=== PATIENT | female | born 1985 | race Caucasian/White ===

== ENCOUNTER 2020-06-01 03:55 | Outpatient (CLI) | payer MEDICAID, SELFPAY ==
[2015-06-22 10:44] VITALS: BMI 37.6
[2020-06-01 04:22] VITALS: TEMP 36.7
[2020-06-01 04:24] VITALS: BP 122/58; PULSE 82; O2SAT 95
[2020-06-01 04:40] VITALS: BMI 29.9
[2020-06-01 05:43] LABS: Bacteria 0 SEEN /hpf (None Seen); Color, Urine Yellow (Yellow); Glucose, Dipstick Normal (Normal); Ketone-Dipstick Negative (Negative); Leukocyte Esterase-Dipstick Negative /ul (Negative); Mucous, Urine 0 SEEN /hpf (<or=2+); Nitrite-Dipstick Negative (Negative); Occult Blood-Urine Negative /ul (Negative); Protein-Dipstick Negative (Negative); Red Blood Cells-Urine 0 SEEN /hpf (0-5); Specific Gravity, Urine 1.015 (1.002-1.030); Urine Bilirubin Dipstick Negative (Negative); Urine Clarity Clear (Clear); Urine Urobilinogen Normal (Normal); White Blood Cells 0 SEEN /hpf (0-5)
[2020-06-01 06:00] LABS: Squamous Epithelial Cells - UA 0-5 SEEN /hpf (5-10)
--- NOTE | 2020-06-01 06:02 | OB.TRI.HP_ITS ---
- Problem List (1) contractions Status: Acute (2) Obesity affecting , antepartum Status: Acute History of Present Illness Date of Service: 05/31/20 Was patient seen by the physician?: Yes Reason For Visit: RULE OUT LABOR Date of Service: 06/01/20 Final GERONIMO: 06/27/20 Final GERONIMO Source: US <20 weeks Gestational age: 36 Weeks and 2 Days History of Present Illness: Patient is a at 35.2 weeks gestation that presents for contractions starting at home around 0830. Contractions became more frequent and were coming every 2-3 minutes. Positive movement. No loss of fluid or vaginal bleeding. complicated by obesity and history of depression. Allergies No Known Allergies Allergy (Verified 06/01/20 04:42) Laboratory Studies: Laboratory Tests 06/01/20 Range/Units 05:38 Urine Color Yellow (Yellow) Urine Clarity Clear (Clear) Urine pH 8.0 (5.0 - 8.0) Ur Specific [place] 1.015 (1.002-1.030) Urine Protein Negative (Negative) mg/dl Urine Glucose (UA) Normal (Normal) mg/dl Urine Ketones Negative (Negative) mg/dl Urine Occult Blood Negative (Negative) /ul Urine Nitrite Negative (Negative) Urine Bilirubin Negative (Negative) mg/dL Urine Urobilinogen Normal (Normal) mg/dl Ur Leukocyte Esterase Negative (Negative) /ul Urine RBC 0 SEEN (0-5) /hpf Urine WBC 0 SEEN (0-5) /hpf Ur Squamous Epith Cells 0-5 SEEN (5-10) /hpf Urine Bacteria 0 SEEN (None Seen) /hpf Urine Mucus 0 SEEN (<or=2+) /hpf Review of Systems Constitutional: Denies: Malaise, Weakness Eyes: Denies: Blurred vision HEENT: Denies: Head Aches Cardiovascular: Denies: Chest Pain Respiratory: Denies: Cough, Shortness of Breath Gastrointestinal: Denies: Abdominal Pain Genitourinary: Denies: Dysuria, Frequency Neurological: Denies: Balance problems Physical Exam Vitals: Vital Signs Temp Pulse BP Pulse Ox 98.0 F 82 122/58 H 95 06/01/20 04:22 06/01/20 04:24 06/01/20 04:24 06/01/20 04:24 General: Alert, Oriented x3 Cardiovascular: Regular rate Lungs: Clear to auscultation, Normal air movement Abdomen: Non Tender, Gravid, Obese Neurological: Cranial nerves II-XII grossly intact Estimated gestational size: Large for gestational age Presentation: Cephalic Cervix Dilation (cm): 3.5 - RN exam Station: -2 Effacement (%): 50 NST - FHR Rate Baby A Baseline: 145 Variability:: Moderate Accelerations:: 15 x 15 Decelerations:: None FHR Category:: Category I Uterine Activity:: TOCO reading contractions every 2-3 minutes. Difficult to trace due to maternal size. Palpate mild and relaxed in between. Impression/Plan at 35.3 weeks gestation with contractions. CE by RN- 3.5/50/-3 Collected UA and sent- see results Urine sent for Culture Start Macrobid 100mg BID x7 days Continuous monitoring Celestone 12mg x1 now IV fluids - LR @50cc/hr Recheck cervix in [address] Salter agrees with plan of care
--- NOTE | 2020-06-01 06:39 | OB.TRI.HP_ITS ---
- Problem List (1) AMA (advanced maternal age) multigravida 35+ Status: Acute (2) History of delivery Status: Acute (3) Late care Status: Acute History of Present Illness Date of Service: 06/01/20 Was patient seen by the physician?: Yes Reason For Visit: RULE OUT LABOR Date of Service: 06/01/20 Final GERONIMO: 06/27/20 Final GERONIMO Source: US <20 weeks Gestational age: 36 Weeks and 2 Days History of Present Illness: at 36.2 weeks gestation presents to triage with feeling uncomfortable and miserable. Denies loss of fluid, vaginal bleeding and has positive movement. Reports lower pelvic pressure. No dysuria but has increased frequency. Denies any cramping or contractions. Stated just wants to have c/s so she can be done being . Allergies No Known Allergies Allergy (Verified 06/01/20 04:42) Laboratory Studies: Laboratory Tests 06/01/20 Range/Units 05:38 Urine Color Yellow (Yellow) Urine Clarity Clear (Clear) Urine pH 8.0 (5.0 - 8.0) Ur Specific [place] 1.015 (1.002-1.030) Urine Protein Negative (Negative) mg/dl Urine Glucose (UA) Normal (Normal) mg/dl Urine Ketones Negative (Negative) mg/dl Urine Occult Blood Negative (Negative) /ul Urine Nitrite Negative (Negative) Urine Bilirubin Negative (Negative) mg/dL Urine Urobilinogen Normal (Normal) mg/dl Ur Leukocyte Esterase Negative (Negative) /ul Urine RBC 0 SEEN (0-5) /hpf Urine WBC 0 SEEN (0-5) /hpf Ur Squamous Epith Cells 0-5 SEEN (5-10) /hpf Urine Bacteria 0 SEEN (None Seen) /hpf Urine Mucus 0 SEEN (<or=2+) /hpf Review of Systems Constitutional: Denies: Anorexia, Chills Eyes: Denies: Blurred vision Cardiovascular: Denies: Chest Pain, Light Headedness Respiratory: Denies: Cough Gastrointestinal: Denies: Abdominal Pain Genitourinary: Reports: Frequency. Denies: Dysuria, Hematuria, Hesitancy Physical Exam Vitals: Vital Signs Temp Pulse BP Pulse Ox 98.0 F 82 122/58 H 95 06/01/20 04:22 06/01/20 04:24 06/01/20 04:24 06/01/20 04:24 General: Alert, Oriented x3 Cardiovascular: Regular rate Lungs: Normal air movement Abdomen: Soft, Non Tender, Gravid Neurological: Cranial nerves II-XII grossly intact Cervix Dilation (cm): 1 - RN exam Station: -3 Effacement (%): 50 NST - FHR Rate Baby A Baseline: 115 Variability:: Moderate Accelerations:: 15 x 15 Decelerations:: None NST Reactive:: Yes FHR Category:: Category I - FHR Rate Baby B FHR Category:: Category I Uterine Activity:: Irritability only. Difficult to trace due to maternal position. Impression/Plan at 36.2 weeks gestation with pelvic pressure and overall feeling uncomfortable. History of 2 C/S Category 1 tracing Patient refusing to sit back to allow monitoring at times UA - negative CE- unchanged at /-3 Discharged home and patient to follow up in office for JANNY. Patient very angry when discharged home stating no one cares that she is uncomfortable and she just wants to have her c/s
== END 2020-06-01 06:07 | disposition home or self-care (01) ==
PROVIDERS: Referring Provider Advanced Practice Midwife; Visit Provider Advanced Practice Midwife
DX: O26.893 Other specified pregnancy related conditions, third trimester (principal); R10.2 Pelvic and perineal pain; O09.523 Supervision of elderly multigravida, third trimester; O09.30 Supervision of pregnancy with insufficient antenatal care, unspecified trimester; Z3A.36 36 weeks gestation of pregnancy; Z98.891 History of uterine scar from previous surgery
CPT/HCPCS: 59025; 59050; 81001; 99218; G0378

== ENCOUNTER 2020-06-14 23:18 | Outpatient (CLI) | payer MEDICAID, SELFPAY ==
[2020-06-14 23:31] VITALS: BP 108/70; PULSE 106; TEMP 36.4; O2SAT 98
[2020-06-14 23:36] VITALS: BMI 31.0
[2020-06-15 00:08] VITALS: BP 113/63; PULSE 91; TEMP 36.6; O2SAT 96
--- NOTE | 2020-06-27 11:02 | OB.TRI.NOTE ---
History of Present Illness Date of Service: 06/16/20 Was patient seen by the physician?: No Reason For Visit: RULE OUT LABOR Date of Service: 06/15/20 Final GERONIMO Source: [place] <20 weeks History of Present Illness: Presented with complaint of contractions. Allergies No Known Allergies Allergy (Verified 06/21/20 10:49) Physical Exam Vitals: Vital Signs Temp Pulse BP Pulse Ox 97.9 F 91 113/63 96 06/15/20 00:08 06/15/20 00:08 06/15/20 00:08 06/15/20 00:08 NST - FHR Rate Baby A Baseline: 115 Variability:: Minimal Accelerations:: 15 x 15 Decelerations:: None NST Reactive:: Yes Impression/Plan A:False Labor P: Discharge home
== END 2020-06-15 00:20 | disposition home or self-care (01) ==
LOC: WPOUT 23:24 → WP 23:25
PROVIDERS: Referring Provider Advanced Practice Midwife; Visit Provider Advanced Practice Midwife
DX: O47.9 False labor, unspecified (principal); Z3A.00 Weeks of gestation of pregnancy not specified
CPT/HCPCS: 59025; 59050; 99218; G0378

== ENCOUNTER 2020-06-19 22:35 | Outpatient (CLI) | payer MEDICAID, SELFPAY ==
[2020-06-19 22:50] VITALS: BP 127/69; PULSE 83; TEMP 36.8; O2SAT 97
[2020-06-19 22:55] VITALS: BMI 32.8
[2020-06-19 23:27] LABS: ROM Internal Control Test YES-OK TO RESULT pt. (Internal QC); ROM Patient Test Negative (Negative)
[2020-06-19 23:52] VITALS: TEMP 36.9; O2SAT 98
[2020-06-19 23:53] VITALS: BP 113/56; PULSE 70
--- NOTE | 2020-06-20 08:41 | OB.TRI.NOTE ---
- Problem List (1) 38 weeks gestation of Status: Acute (2) Cramping affecting , antepartum Status: Acute History of Present Illness Date of Service: 06/19/20 Was patient seen by the physician?: No Reason For Visit: R/O LABOR Date of Service: 06/19/20 Final GERONIMO: 06/27/20 Final GERONIMO Source: US <20 weeks Gestational age: 39 Weeks and 0 Days History of Present Illness: Pt with irregular ctx's and cramping Allergies No Known Allergies Allergy (Verified 06/19/20 22:56) Laboratory Studies: Laboratory Tests 06/19/20 Range/Units 22:55 Vag Amniotic Fld Detect Negative (Negative) Physical Exam Vitals: Vital Signs Temp Pulse BP Pulse Ox 98.5 F 70 113/56 L 98 06/19/20 23:52 06/19/20 23:53 06/19/20 23:53 06/19/20 23:52 NST - FHR Rate Baby A Baseline: 120 Variability:: Moderate Accelerations:: 15 x 15 Decelerations:: None NST Reactive:: Yes Uterine Activity:: Irregular ctx's and irritability Impression/Plan Patient not in labor NST reactive D/c home with return precautions
== END 2020-06-20 00:20 | disposition home or self-care (01) ==
LOC: WPOUT 22:39 → OBT 22:40
PROVIDERS: Referring Provider Obstetrics & Gynecology; Visit Provider Obstetrics & Gynecology
DX: O26.893 Other specified pregnancy related conditions, third trimester (principal); R25.2 Cramp and spasm; Z3A.39 39 weeks gestation of pregnancy
CPT/HCPCS: 59025; 59050; 84112; 99218; G0378

== ENCOUNTER 2020-06-21 10:20 | Inpatient (IN) | payer MEDICAID, SELFPAY ==
--- NOTE | 2020-06-16 11:43 | PCM.HP.BLA ---
History and Physical Date of Admission: 06/21/20 Pavithra Rowe Physician Specialty: CATTLE DRIVER H&P Signed Encounter Date: 06/16/2020 Expand All Collapse All Hide copied text Josy for details Veena Moise is a 35 year old female who presents for pre op for scheduled c/s at 39 weeks. Pt has h/o 2 previous cs and desires repeat with bilateral salpingectomy. Pt denies vb, lof, contractions. Good FM. Pt denies CP, SOB, dizziness. ? ? PAST MEDICAL HISTORY PAST MEDICAL HISTORY Diagnosis Date ? Chlamydia 2009 PAST SURGICAL HISTORY PAST SURGICAL HISTORY Procedure Laterality Date ? DELIVERY ONLY ? 08/19/2011 ? x 2 ? SECTION HX ? 06/22/2015 FAMILY HISTORY FAMILY HISTORY Problem Relation Age of Onset ? Cancer Maternal Grandfather ? ? Lung Cancer SOCIAL HISTORY Social History ? Tobacco Use ? Smoking status: Former Smoker ? Smokeless tobacco: Never Used Substance Use Topics ? Alcohol use: Yes ? ? Comment: Rare, none while ? Drug use: Never CURRENT MEDICATIONS Current Outpatient Medications Medication Sig ? metroNIDAZOLE (FLAGYL) 500 mg tablet ? ? VIT #91/FE FUM/FA/DHA ( + DHA ORAL) Take 1 tablet by mouth once daily. ? No current facility-administered medications for this visit. Allergies As of Date: 06/16/2020 (No Known Allergies) Fully Assessed 06/16/2020 ? REVIEW OF SYSTEMS Abdomen: No abdominal pain, nausea, vomiting, diarrhea, or constipation. Bladder: no dysuria .. Expanded ROS: GENERAL: Negative for fever Allergies and current medication updated:Yes ? EXAM: BP 122/78 Wt 181 lb (82.1kg) LMP 09/21/2019 GENERAL: pleasant, female in no apparent distress HEENT: Normocephalic and atraumatic NECK: full range of motion DERMATOLOGY: Normal, without lesions, non-icteric and non-hirsute ABDOMEN: gravid, non tender ? NEURO: alert and oriented x3,exam grossly non-focal EXTREMITIES: normal ? ASSESSMENT AND PLAN: Encounter Diagnosis ? ? ICD-10-CM ? 1. Antepartum multigravida of advanced maternal age O09.529 URINE OB DIP B/O 2. History of 2 sections Z98.891 URINE OB DIP B/O 3. 38 weeks gestation of Z3A.38 URINE OB DIP B/O 4. Repeat cs scheduled 39.1 weeks with bilateral salpingectomy 5. covid testing reviewed 6. Pt has been counseled on risks/benefits and alternatives of surgery including but not limited to anesthesia, bleeding, infection, injury to pelvic structures including bowel, bladder, ureters and vessels. Pt wishes to proceed with surgery at this time. 7. ERAS protocol reviewed ? Pavithra Muñoz MD ?
[2020-06-21] VITALS (17 sets, daily range): BP systolic 109–133; BP diastolic 49–74; PULSE 55–75; RESP 16; TEMP 36.2–36.7; O2SAT 93–100; BMI 34.0
[2020-06-21] MEDS: Lactated Ringers 1,000 ML 999 ML IV ×2 (11:00→21:02)
[2020-06-21 11:10] LABS: Absolute Neutrophil Count 7.4 X10^3/uL (2.0-7.7); Basophil# 0.04 X10^3/uL; Basophil% 0.4 % (0-1); Eosinophil# 0.05 X10^3/uL; Eosinophils% 0.5 % (0-5); Hematocrit 32.8 % (37-47); Hemoglobin 10.6 g/dL (12.0-15.0); Lymphocyte % 18.4 % (19-41); Mean Corp Hgb Conc 32.3 g/dL (32-36); Mean Corpuscular Hgb 28.5 pg (27.0-32.0); Mean Corpuscular Volume 88.2 fL (81-99); Mean Platelet Vol. 11.6 fl (6.2-12.0); Monocyte# 0.43 X10^3/uL; Monocyte% 4.4 % (0-10); NRBC Flagged by Analyzer 0 % (0-5); Neutrophil # 7.39 X10^3/uL (2.7-7.7); Neutrophil % 75.6 % (47-70); Platelet Count 272 K/mm3 (150-450); RBC Distribution Width CV 14.6 % (11.6-14.6); RBC Distribution Width SD 46.9 fl (35.1-43.9); Red Blood Count 3.72 M/mm3 (4.2-5.4); White Blood Count 9.8 K/mm3 (4.4-11.0)
[2020-06-21] MEDS: Acetaminophen 500 MG Tablet 1000 MG PO ×3 (11:15→23:56)
[2020-06-21] MEDS: Lactated Ringers 1,000 ML 150 ML IV (11:55)
[2020-06-21] MEDS: Sodium Citrate/Citric Acid 30 ML UDC PO (11:56)
[2020-06-21] MEDS: Cefazolin 2 GM in 0.9% Normal Saline 100 ML IV (12:05)
--- NOTE | 2020-06-21 12:07 | PCM.OPRPT ---
Delivery Classification: Scheduled Final GERONIMO: 06/27/20 Gestational age: 39 Weeks and 1 Days liberal arts and humanities chair: Mei Brown Type of Anesthesia:: Spinal Implants Used: none Date of Procedure: 06/21/20 Pre-Operative Diagnosis: term gestation, repeat elective cs, desires sterilization Post-Operative Diagnosis: same Indications: Elective repeat cs and desires sterilization Description of Procedure: After informed consent was obtained the patient was taken to the operating room she was given spinal anesthesia. He was placed in the supine position. She was then prepped and draped in normal sterile fashion. Once spinal anesthesia was found to be adequate skin incision was made with a scalpel in a Pfannenstiel fashion. It was carried down to the underlying layer of the fascia. Fascia was then incised midline with scapel and extended laterally using curved cristobal. 2 straight Brendan's were placed in the superior aspect of the fascial edge and the rectus muscles were dissected off sharply. Attention was then turned to the inferior aspect where again the fascial edge was grasped with 2 straight [place] clamps tented up and the rectus muscle dissected off sharply. At this time the rectus muscles were grasped in the midline using 2 Allis clamps and scalpel was used to separate the rectus muscles. Using blunt force the peritoneum was then entered. Metzenbaums were used to take down the rectus muscles inferiorly as well as the peritoneum. At this time the vesicouterine peritoneum was identified. Uterine incision was made in a low transverse fashion with the scalpel and then entered bluntly. Gentle opposing traction was placed to extend the uterine incision. The membranes were ruptured amniotic fluid clear. Infant's head was then brought to the uterine incision was delivered atraumatically followed by the rest infant's body. At this time delayed cord clamping was performed mouth nose were suctioned. was then handed to the waiting nursery team. The placenta was then removed with gentle traction. The uterus was removed from the intra-abdominal cavity is wrapped in a moist lap. He was cleared of all clots and debris using a moist lap. Ring clamps were placed on the uterine angles. #1 Vicryl suture was used in a running locked fashion for the first layer. figure of eight sutures using #1 vicryl used for hemostasis. At this time the right tube and ovary were evaluated. Avascular area was grasped with Harley in 2 areas. The LigaSure was used to clamp seal and ligate along the mesosalpinx and removing the entire tube. The uterus was then placed back in the intra-abdominal cavity after the posterior cul-de-sac was cleared of all clots and debris. This was then repeated on the left side. Tube and ovary were normal. And the tube was removed in its entirety. Tubes will be sent to pathology for evaluation. Great hemostasis was appreciated at this time the uterine incision was again evaluated good hemostasis was appreciated. The peritoneum was grasped with Kellys. Peritoneum was reapproximated using #2 Vicryl suture in a running fashion. Muscle was then reapproximated using #2 Vicryl in an interrupted mattress suture fashion. The fascia was then reapproximated using #1 Vicryl in a running fashion. Subcutaneous layer was evaluated and Bovie was used for any small oozing that was noted per #2-0 plain gut suture was then used to reapproximate the subcutaneous layer 4-0 Vicryl on a Duke needle was used to reapproximate the skin in a subcutaneous fashion. Dry sterile dressing was applied. Instrument lap needle count were correct ?2. Anticipated normal postoperative course for this patient. Amniotic Membrane Rupture Type: Artificial Amniotic Fluid Description: Clear Placenta Disposition: [facility] Specimen(s) sent to pathology: bilateral fallopian tubes Drain: Lopez to straight drain Cord Entanglement: None Nuchal Cord Compression: Without compression Cord Vessel Description: 3 Vessels Esitmated Blood Loss (ml): 450 Infant Gender: Male (1 minute): 9 (5 minute): 9 Antibiotic Given: Ancef 2 grams IV x1 Pt instructed on risks of surgery: Bleeding, Anesthesia Risks, Infection, Permanency, Injury to surrounding structure(s) including bowel and bladder, Availability of other non-permanent control options Complications: None - Admit VTE Documentation VTE Present on Admission: Yes VTE Mechan Device Prophylaxis: SCD's VTE Pharm Prophylaxis ordered?: No
--- NOTE | 2020-06-21 12:30 | FALS_PTH ---
PATIENT: FRAN CONWAY LOC: [facility] U#:[id number] AGE/SX: 35/F ROOM: WP002 RE06/21/[address]: Dr. Pavithra Muñoz, MDDOB: 1985 BED: 1 DIS: 06/23/2020 SPEC #: [id number] RECD: 06/21/20 13:21 STATUS: GRISELDA SILVANO #: [id number] JASEN: 06/21/20 12:[address]: Pavithra Muñoz DEPT: SURGICAL PATHOLOGY RECD BY: Giselle Kang ENTERED: 06/22/20 13:58 SP TYPE: FALL TUBES OTHR DR: No Primary Care Phys Tissues: Fallopian tube Procedures: Surgery Specimen Level II HEADER OPERATION: Bilateral salpingectomy/tubal ligation PRE-OP DIAGNOSIS: Sterilization TISSUE SUBMITTED: Bilateral fallopian tubes MICROSCOPIC DIAGNOSIS Right and left fallopian tubes, bilateral salpingectomies: Two complete segments of fallopian tubes with no pathologic change. AM:yosef 06/23/20 MICROSCOPIC DESCRIPTION Slides are reviewed. GROSS DESCRIPTION Received in fixative is one container labeled with the patient's name and designated bilateral fallopian tubes. The specimen consists of two fallopian tubes with an average length of 6 cm and has an average diameter of 0.8 cm. One fallopian tube contains a suture. Both fallopian tubes have normal fimbriated ends. No mass lesions are identified. Sales Recruiter sections are submitted in two cassettes as follows: 1 - fallopian tube with suture, 2 - fallopian tube without suture. / AM:yosef 06/22/20 TC:4 CPT: 62121 x2
[2020-06-21] MEDS: Ketorolac 30 MG/ML Syringe IV ×2 (12:55→18:02)
[2020-06-21] MEDS: Oxytocin 30 units/NS 500 ml 30 UNITS/500 ML IV.SOLN 167 UNITS IV (13:10)
[2020-06-21] MEDS: Ondansetron 4 MG/2 ML Vial IV (14:39)
[2020-06-21] MEDS: DiphenhydrAMINE 25 MG Capsule PO (14:47)
[2020-06-21] MEDS: proCHLORPERazine 10 MG/2 ML Vial IV (16:20)
--- NOTE | 2020-06-21 19:20 | CASEMGMT ---
Social Work Assessment Labor and Delivery Unit Date of Referral: 06/21/2020 Time of Referral: 14:00 Referred By: Dr. Muñoz Date of Intervention: 06/21/2020 Time of Intervention: 19:20 Reason for Referral: Mother of baby (MOB) does not have custody of two older children. History obtained from: MOB, Chart, Nursing staff. Household composition: MOB and now this , Roman Dawson. MOB has private home. This social worker school inquiring as to last name Eunice. MOB states plan to change own last name to Eunice and therefore infant?s last name is to be Eunice. MOB states ?like Wes Ramos.? MOB states to be working on moving to [facility] and to be on list for [employer]. Patient's parent/guardian status: MOB states that father of baby (FOB) is ?not involved.? MOB states to have been friends with FOB for ?years? and to have gotten together for ?a little while.? MOB states to have discovered after breaking up with FOB. MOB states that when MOB called FOB that FOB states to not want to be involved. MOB states to have two older children, Vanessa Moise (age 5) and Fiorella Moise (age 9) that MOB does not have custody of. MOB states that ?their father,? MOB?s ex- has custody due to MOB not having any housing when MOB ended relationship with ex- and this is why MOB did not get custody of children. MOB states to now have stable housing and to see Haja ?almost daily.? MOB states things are ?cordial? with Haja?s father. MOB states to have been to Haja?s father for 12 years and to have gotten a divorce 2 years ago. Medical History: MOB with history prior to delivering this . MOB delivered via . born on 06/21/2021. Apgars of 9 and 9 at 1min and 5min. weight of 3660g. MOB with appropriate care and plans for to follow with Dr. Hargrove in [facility]. Educational Status: MOB states no concerns for comprehension/understanding. Financial Status: MOB denies any financial concerns. MOB states to work full-time at [employer] [place]. Infant Supplies: MOB reports to have needed supplies in the home including a crib and car seat etc. MOB states plan is to breastfeed and ?this going well.? Childcare/Caregiver(s): MOB plans to be primary caregiver for infant while MOB is off work. Once MOB returns to work plans is for MOB?s mother, Destinee or ?my aunts? to watch infant. Transportation: Denies concerns Programs/Agencies Involved: Reports plan to apply for WIC if does not do well with . Children Services/Legal Issues: Reports history of [facility] Children services case 2 years ago when MOB was going through divorce. MOB states to have moved in with ?my new girlfriend.? MOB states that ?new girlfriend? has a son that was being inappropriate towards MOBs children. MOB states that it was an ?open and close case.? MOB states to have not had custody of own children but that children would come to stay with MOB. Mental Health History: MOB denies any mental health history. MOB denies any depression (PPD). MOB denies any suicidal thoughts/plans/intents or history of. MOB aware of signs/symptoms of PPD and states to have supports and plan to speak with doctor if unable to manage emotions or if suicidal thoughts would arise. Substance Use History: Denies. Maternal and Drug Screens: None obtained. PHQ9: Did not trigger. Family/Social Stressors: Denies any stressors. Support Systems: Reports support from MOB?s mother and aunts. MOB states no concerns with having enough support as single parent. Depression and Anxiety/Shaken Baby/Safe Sleeping: MOB and this social worker school able to have conversation about PPD and Anxiety. MOB responding appropriately to prompts for Shaken Baby and Safe Sleeping. Provided MOB with [facility] resource, PPD/Anxiety, Shaken Baby and Safe Sleeping resources/supports. ASSESSMENT: Met with MOB, , and MOB?s mother, Destinee in room. MOB wanting Destinee to stay in room during conversation. MOB aware of possible sensitive questions. MOB states ?my mom knows everything.? MOB present as pleasant and engaged. MOB reports to have a connection with infant and to be ?bonding.? MOB holding during assessment. MOB gazing and smiling towards infant often. MOB reports no concerns on returning to home. MOB states to be working on moving to [place] and to already be on list with [place]. MOB plans to move to [place] as this is closer to MOB?s support system. Active support and listening provided. PLAN: Infant to discharge to home with MOB. No other services requested or indicated. Kady GUNTER, PANDA
[2020-06-21] MEDS: Lactated Ringers 1,000 ML 100 ML IV (22:03)
[2020-06-22 00:22] LABS: Absolute Lymphocyte Count 1.18 X10^3/uL (0.83-4.51); Absolute Neutrophil Count 12.3 X10^3/uL (2.0-7.7); Basophil# 0.03 X10^3/uL; Basophil% 0.2 % (0-1); Eosinophil# 0.01 X10^3/uL; Eosinophils% 0.1 % (0-5); Hematocrit 34.2 % (37-47); Lymphocyte # 1.18 X10^3/ul (4.0); Lymphocyte % 8.5 % (19-41); Mean Corp Hgb Conc 32.2 g/dL (32-36); Mean Corpuscular Hgb 28.7 pg (27.0-32.0); Mean Corpuscular Volume 89.3 fL (81-99); Mean Platelet Vol. 11.4 fl (6.2-12.0); Monocyte# 0.35 X10^3/uL; Monocyte% 2.5 % (0-10); NRBC Flagged by Analyzer 0 % (0-5); Neutrophil # 12.25 X10^3/uL (2.7-7.7); Platelet Count 279 K/mm3 (150-450); RBC Distribution Width CV 14.6 % (11.6-14.6); Red Blood Count 3.83 M/mm3 (4.2-5.4); White Blood Count 13.9 K/mm3 (4.4-11.0)
[2020-06-22 00:37] LABS: ALB/GLOB Ratio 0.7 RATIO (0.9-2.4); AST(SGOT) 17 U/L (15-37); Alanine Aminotransfer ALT/SGPT 19 U/L (13-56); Albumin, Serum 2.3 g/dL (3.2-5.0); Alkaline Phosphatase 158 U/L (45-117); Anion Gap 7 (5-15); BUN 8 mg/dL (7-18); BUN/Creat Ratio 10.9 RATIO (10-20); Calcium,Total 8.1 mg/dL (8.5-10.1); Chloride 109 mmol/L (98-107); Creatinine, Serum 0.73 mg/dL (0.55-1.02); EST Glomerular Filtration Rate 96 mL/min (>60); Est Glom Filt Rate - Afr Amer 116 mL/min (>60); Globulin 3.4 g/dL (2.2-4.2); Glucose 101 mg/dL (74-106); Potassium 3.8 mmol/L (3.5-5.1); Protein, Total 5.7 g/dL (6.4-8.2); Sodium Level 142 mmol/L (136-145)
[2020-06-22 02:06] VITALS: PULSE 64; RESP 16; O2SAT 98
--- NOTE | 2020-06-22 03:32 | NURSING ---
0330- Diastasis recti noted on patient's abdomen during fundal check. More significant now than from earlier in the shift. Pt. has not vomited in the past hour, and reports I feel much better, I feel great. This RN will continue to monitor.
[2020-06-22] MEDS: Lactated Ringers 500 ML 999 ML IV (04:03)
--- NOTE | 2020-06-22 04:10 | NURSING ---
Pt. still does not have adequate urine output. Urine is concentrated, and there was only 50cc of output over 3 hours. Provider called to inform of this. Bolus order for 500cc given.
[2020-06-22 05:25] LABS: Hemoglobin 10.6 g/dL (12.0-15.0); Mean Corp Hgb Conc 33.1 g/dL (32-36); Mean Corpuscular Hgb 29.6 pg (27.0-32.0); Mean Corpuscular Volume 89.4 fL (81-99); Mean Platelet Vol. 11.5 fl (6.2-12.0); Platelet Count 272 K/mm3 (150-450); RBC Distribution Width CV 14.6 % (11.6-14.6); Red Blood Count 3.58 M/mm3 (4.2-5.4)
[2020-06-22] MEDS: Acetaminophen 500 MG Tablet 1000 MG PO ×3 (05:42→19:52)
--- NOTE | 2020-06-22 07:43 | NURSING ---
This RN got pt. up to restroom this morning around 0647. This RN noticed pt. has a hernia on her abdomen when she bent over to change mesh panties. Pt. reports she has had it since her last and it is nothing new.
--- NOTE | 2020-06-22 08:12 | PN.OBGYN_ITS ---
Subjective: pt seen at bedside, doing well. pt reports good pain control. lochia mild. reports improvement in nausea. breast feeding. - Physical Exam Vitals/I&O's: Vital Signs Temp Pulse Resp BP Pulse Ox 97.9 F 64 16 111/65 98 06/21/20 21:04 06/22/20 02:06 06/22/20 02:06 06/21/20 23:49 06/22/20 02:06 Oxygen Delivery Method Room Air Weight: 89.8 kg Body Mass Index (BMI) 34.0 Intake and Output for Last 24 Hours 06/20/20 06/21/20 06/22/20 23:59 23:59 23:59 Intake Total 3504 / 3504 1100 / 1100 Output Total 850 / 1050 725 / 725 Balance 2654 / 2454 375 / 375 General: Alert, Oriented x3 Abdomen: Soft, Non Tender, Non-Distended, - - fundus firm. dressing with old blood but no active drainage. Extremities: No Calf Tenderness Laboratory Results 06/21/20 11:00: WBC 9.8, RBC 3.72 L, Hgb 10.6 L, Hct 32.8 L, MCV 88.2, MCH 28.5, MCHC 32.3, RDW Std Deviation 46.9 H, RDW Coeff of Moustapha 14.6, Plt Count 272, MPV 11.6, Immature Gran % (Auto) 0.700, Neut % (Auto) 75.6 H, Lymph % (Auto) 18.4 L, [place] % (Auto) 4.4, Eos % (Auto) 0.5, Baso % (Auto) 0.4, Absolute Neuts (auto) 7.4, Absolute Lymphs (auto) 1.80, Nucleated RBC % 0 06/21/20 11:00: Blood Type A POSITIVE, Antibody Screen NEGATIVE 06/22/20 00:14: WBC 13.9 H, RBC 3.83 L, Hgb 11.0 L, Hct 34.2 L, MCV 89.3, MCH 28.7, MCHC 32.2, RDW Std Deviation 47.0 H, RDW Coeff of Moustapha 14.6, Plt Count 279, MPV 11.4, Immature Gran % (Auto) 0.700, Neut % (Auto) 88.0 H, Lymph % (Auto) 8.5 L, [place] % (Auto) 2.5, Eos % (Auto) 0.1, Baso % (Auto) 0.2, Absolute Neuts (auto) 12.3 H, Absolute Lymphs (auto) 1.18, Nucleated RBC % 0 06/22/20 00:14: Sodium 142, Potassium 3.8, Chloride 109 H, Carbon Dioxide 26.0, Anion Gap 7, BUN 8, Creatinine 0.73, Estim Creat Clear Calc 92.00, Est GFR (MDRD) Af Amer 116, Est GFR (MDRD) Non-Af 96, BUN/Creatinine Ratio 10.9, Glucose 101, Calcium 8.1 L, Total Bilirubin 0.40, AST 17, ALT 19, Alkaline Phosphatase 158 H, Total Protein 5.7 L, Albumin 2.3 L, Globulin 3.4, Albumin/Globulin Ratio 0.7 L 06/22/20 05:18: WBC 13.0 H, RBC 3.58 L, Hgb 10.6 L, Hct 32.0 L, MCV 89.4, MCH 29.6, MCHC 33.1, RDW Std Deviation 47.0 H, RDW Coeff of Moustapha 14.6, Plt Count 272, MPV 11.5 Current Medications Acetaminophen (Tylenol) 1,000 mg PO Q6H [facility] Last Admin: 06/22/20 05:42 Dose: 500 mg Documented by: Bisacodyl (Dulcolax) 10 mg RECTAL UD PRN PRN Reason: If no BM Diphenhydramine HCl (Benadryl) 25 mg PO Q6H PRN PRN PRN Reason: ITCHING Stop: 06/22/20 13:21 Last Admin: 06/21/20 14:47 Dose: 25 mg Documented by: Hydrocortisone (Hytone) 1 applic TOPICAL TID PRN PRN; Protocol PRN Reason: Discomfort Lactated Ringer's () 1,000 mls @ 100 mls/hr IV .Q10H [facility] Last Infusion: 06/22/20 04:34 Dose: 100 mls/hr Documented by: Naloxone HCl 4 mg/ Dextrose 504 mls @ 0 mls/hr IV .Q0M PRN; Protocol PRN Reason: Respiratory depression Ibuprofen (Motrin) 600 mg PO Q6H [facility] Methylergonovine Maleate (Methergine) 0.2 mg IM X1 PRN PRN Reason: Uterine Atony Nalbuphine HCl (Nubain) 5 mg IV Q3H PRN PRN PRN Reason: ITCHING Stop: 06/22/20 13:21 Naloxone HCl (Narcan) 0.02 mg IV Q1M PRN PRN Reason: RR <10 and pt unresponsive Ondansetron HCl (Zofran) 4 mg IV Q4H PRN PRN PRN Reason: Nausea Last Admin: 06/21/20 14:39 Dose: 4 mg Documented by: Oxycodone HCl (Oxyir) 5 - 10 mg PO Q4H PRN PRN PRN Reason: Pain Score 4-10/10 Prochlorperazine Edisylate (Compazine Iv) 10 mg IV Q6H PRN PRN PRN Reason: NAUSEA Last Admin: 06/21/20 16:20 Dose: 10 mg Documented by: Senna/Docusate Sodium (Senokot-S, Margie-Colace) 0 tablet PO DAILY GAYLE Simethicone (Mylicon) 80 mg PO PCHS PRN PRN Reason: Indigestion/stomach pain Sodium Chloride () 5 - 15 ml IV UD PRN PRN Reason: SALINE FLUSH Medical Necessity - Tobacco Use Smoking Status: Former smoker Assessment/Plan All Active Problems contractions (Acute) Obesity affecting , antepartum (Acute) AMA (advanced maternal age) multigravida 35+ (Acute) History of delivery (Acute) Late care (Acute) 38 weeks gestation of (Acute) Cramping affecting , antepartum (Acute) POD#1, doing well routine care pain mgmt monitor urine output- d/c macdonald ambulation
[2020-06-22 08:40] VITALS: BP 110/55; PULSE 63; RESP 16; TEMP 36.1
[2020-06-22 11:47] VITALS: BP 117/66; PULSE 71; RESP 16; TEMP 36.5
[2020-06-22 16:30] VITALS: BP 126/57; PULSE 79; RESP 16; TEMP 36.2
[2020-06-22] MEDS: Ibuprofen 600 MG Tablet PO (17:28)
[2020-06-22 19:57] VITALS: BP 115/64; PULSE 72; RESP 16; TEMP 36.6
[2020-06-23] MEDS: Ibuprofen 600 MG Tablet PO ×2 (00:31→07:07)
[2020-06-23] MEDS: Acetaminophen 500 MG Tablet 1000 MG PO ×2 (02:43→10:19)
--- NOTE | 2020-06-23 07:25 | PCM.PN.OB ---
Subjective: Pain well controlled. Average lochia. Urinating without difficulty. Had a bowel movement. Working on breast-feeding. Desires discharge home today. - Physical Exam Vitals/I&O's: Vital Signs Temp Pulse Resp BP Pulse Ox 97.8 F 72 16 115/64 98 06/22/20 19:57 06/22/20 19:57 06/22/20 19:57 06/22/20 19:57 06/22/20 02:06 Oxygen Delivery Method Room Air Weight: 89.8 kg Body Mass Index (BMI) 34.0 Intake and Output for Last 24 Hours 06/21/20 06/22/20 06/23/20 23:59 23:59 23:59 Intake Total 3504 / 3504 1500 / 1500 Output Total 850 / 1050 2625 / 2625 Balance 2654 / 2454 -1125 / -1125 General: Alert, Cooperative, No apparent distress Abdomen: Soft, Non-Distended, Tender - Appropriately Skin: Incision - Bandage has a small amount of sanguinous drainage, otherwise clean dry and intact Current Medications Acetaminophen (Tylenol) 1,000 mg PO Q6H [facility] Last Admin: 06/23/20 05:25 Dose: Not Given Documented by: Bisacodyl (Dulcolax) 10 mg RECTAL UD PRN PRN Reason: If no BM Hydrocortisone (Hytone) 1 applic TOPICAL TID PRN PRN; Protocol PRN Reason: Discomfort Naloxone HCl 4 mg/ Dextrose 504 mls @ 0 mls/hr IV .Q0M PRN; Protocol PRN Reason: Respiratory depression Ibuprofen (Motrin) 600 mg PO Q6H [facility] Last Admin: 06/23/20 07:07 Dose: 600 mg Documented by: Methylergonovine Maleate (Methergine) 0.2 mg IM X1 PRN PRN Reason: Uterine Atony Naloxone HCl (Narcan) 0.02 mg IV Q1M PRN PRN Reason: RR <10 and pt unresponsive Ondansetron HCl (Zofran) 4 mg IV Q4H PRN PRN PRN Reason: Nausea Last Admin: 06/21/20 14:39 Dose: 4 mg Documented by: Oxycodone HCl (Oxyir) 5 - 10 mg PO Q4H PRN PRN PRN Reason: Pain Score 4-10/10 Prochlorperazine Edisylate (Compazine Iv) 10 mg IV Q6H PRN PRN PRN Reason: NAUSEA Last Admin: 06/21/20 16:20 Dose: 10 mg Documented by: Senna/Docusate Sodium (Senokot-S, Margie-Colace) 0 tablet PO DAILY GAYLE Last Admin: 06/22/20 11:50 Dose: Not Given Documented by: Simethicone (Mylicon) 80 mg PO PCHS PRN PRN Reason: Indigestion/stomach pain Sodium Chloride () 5 - 15 ml IV UD PRN PRN Reason: SALINE FLUSH Medical Necessity - Tobacco Use Smoking Status: Former smoker Assessment/Plan All Active Problems contractions (Acute) Obesity affecting , antepartum (Acute) AMA (advanced maternal age) multigravida 35+ (Acute) History of delivery (Acute) Late care (Acute) 38 weeks gestation of (Acute) Cramping affecting , antepartum (Acute) Postoperative day #2 status post repeat section with bilateral salpingectomy for sterilization Patient is doing well. Desires discharge home today. Infant is breast-feeding and doing well. Routine discharge instructions.
--- NOTE | 2020-06-23 07:27 | DCINST_ITS ---
Discharge Diet: No Restrictions Discharge Activity: Return to Normal Activity, May Not Drive - for 2 weeks, May not drive while taking narcotic pain medications., May Shower, May Take a Tub Bath - in 7 days. May resume sexual activity in: 4-6 weeks Lifting Restrictions: 20 pounds Additional Activity Instructions:: Nothing in the vagina for 4-6 weeks. You may return to work/school in 6 weeks. Call your doctor if your incision/area has: Continuous Slow Oozing, Sudden Increased Bleeding, Increased Pain/ Swelling, Increased Redness, Foul Smelling Discharge Call your doctor if you observe: Fever of 101 or Higher, Using more than one pad per hour - for 2 hours Suture Line Care: Avoid Pulling/Pushing, Avoid Pinching/Bending Cleanse incision/area with: Keep Dressing Clean & Dry Additional Instructions: If you experience any of the following, contact your healthcare provider. * Bleeding that soaks a pad every hour for 2 hours * Fever 100.4 or higher * Unrelieved incision or abdominal pain * Swelling, redness, discharge or bleeding from your incision or episiotomy site * Your incision begins to separate * Problems urinating (including inability to urinate or burning while urinating). * Visual changes * Severe headache * Flu-like symptoms * Pain or redness in one of both of your breasts * Pain, warmth, tenderness or swelling in your legs, especially the calf area * Frequent nausea and vomiting * Symptoms of depression or anxiety If you experience any of the following, call 911 or go to the nearest Emergency Room. * Chest pain * Problems breathing * Seizure activity * Partial or complete paralysis of a body part, slurred speech, weakness or drooping of the face, or a sudden inability to walk or hold your balance Allergies/Adverse Reactions: Allergies No Known Allergies Allergy (Verified 06/21/20 10:49) Medications to take at Discharge Vits [Prenatabs FA ] 1 tab PO DAILY 06/21/15 Tums 1 tab PO PRN PRN 06/01/20 Acetaminophen [Tylenol] 325 mg PO PRN PRN 06/14/20 Ibuprofen [Motrin] 600 mg PO Q6H PRN #60 tab 06/23/20 The following prescriptions were given: Ibuprofen [Motrin] 600 mg PO Q6H PRN #60 tab PRN Reason: Pain Transmission Status: Pending to [facility] Follow-Up: Call to make an appointment with your doctor for an incision check in 1-2 weeks. You will also need a 6 week post- follow up appointment. Test results from this visit will be discussed in further detail at your follow- up appointment, if applicable. Please Follow Up With: Pavithra Muñoz MD - Call to make an appointment for an incision check in 1-2 [phone] When: You will need a post check in 6 weeks. Primary Care Physician: Care Physician,No Primary [Primary Care Provider] -
--- NOTE | 2020-06-23 07:28 | PCM.DC.SUM ---
Discharge Date and Diagnosis Date of Admission: 06/21/20 Hospital Course and Treatment Operations: - - Repeat low transverse section with bilateral salpingectomy for sterilization Summary of Care Provided: The patient is a 35 year old multigravida female admitted for repeat section with bilateral salpingectomy. Patient did well. Postoperative course was unremarkable. By postoperative day #2 she was ambulating, urinating tolerating regular diet without difficulty. She was discharged home with routine instructions and prescriptions. [] - Physical Exam Vitals/I&O's: Vital Signs Temp Pulse Resp BP Pulse Ox 97.8 F 72 16 115/64 98 06/22/20 19:57 06/22/20 19:57 06/22/20 19:57 06/22/20 19:57 06/22/20 02:06 Oxygen Delivery Method Room Air Weight: 89.8 kg Body Mass Index (BMI) 34.0 Intake and Output for Last 24 Hours 06/21/20 06/22/20 06/23/20 23:59 23:59 23:59 Intake Total 3504 / 3504 1500 / 1500 Output Total 850 / 1050 2625 / 2625 Balance 2654 / 2454 -1125 / -1125 Current Medications Acetaminophen (Tylenol) 1,000 mg PO Q6H [facility] Last Admin: 06/23/20 05:25 Dose: Not Given Documented by: Bisacodyl (Dulcolax) 10 mg RECTAL UD PRN PRN Reason: If no BM Hydrocortisone (Hytone) 1 applic TOPICAL TID PRN PRN; Protocol PRN Reason: Discomfort Naloxone HCl 4 mg/ Dextrose 504 mls @ 0 mls/hr IV .Q0M PRN; Protocol PRN Reason: Respiratory depression Ibuprofen (Motrin) 600 mg PO Q6H [facility] Last Admin: 06/23/20 07:07 Dose: 600 mg Documented by: Methylergonovine Maleate (Methergine) 0.2 mg IM X1 PRN PRN Reason: Uterine Atony Naloxone HCl (Narcan) 0.02 mg IV Q1M PRN PRN Reason: RR <10 and pt unresponsive Ondansetron HCl (Zofran) 4 mg IV Q4H PRN PRN PRN Reason: Nausea Last Admin: 06/21/20 14:39 Dose: 4 mg Documented by: Oxycodone HCl (Oxyir) 5 - 10 mg PO Q4H PRN PRN PRN Reason: Pain Score 4-10/10 Prochlorperazine Edisylate (Compazine Iv) 10 mg IV Q6H PRN PRN PRN Reason: NAUSEA Last Admin: 06/21/20 16:20 Dose: 10 mg Documented by: Senna/Docusate Sodium (Senokot-S, Margie-Colace) 0 tablet PO DAILY GAYLE Last Admin: 06/22/20 11:50 Dose: Not Given Documented by: Simethicone (Mylicon) 80 mg PO PCHS PRN PRN Reason: Indigestion/stomach pain Sodium Chloride () 5 - 15 ml IV UD PRN PRN Reason: SALINE FLUSH Discharge Diet: No Restrictions Discharge Activity: Return to Normal Activity, May Not Drive - for 2 weeks, May not drive while taking narcotic pain medications., May Shower, May Take a Tub Bath - in 7 days. May resume sexual activity in: 4-6 weeks Additional Activity Instructions:: Nothing in the vagina for 4-6 weeks. You may return to work/school in 6 weeks. Call your doctor if your incision/area has: Continuous Slow Oozing, Sudden Increased Bleeding, Increased Pain/ Swelling, Increased Redness, Foul Smelling Discharge Call your doctor if you observe: Fever of 101 or Higher, Using more than one pad per hour - for 2 hours Suture Line Care: Avoid Pulling/Pushing, Avoid Pinching/Bending Cleanse incision/area with: Keep Dressing Clean & Dry Home Medications: Medications to take at Discharge Vits [Prenatabs FA ] 1 tab PO DAILY 06/21/15 Tums 1 tab PO PRN PRN 06/01/20 Acetaminophen [Tylenol] 325 mg PO PRN PRN 06/14/20 Ibuprofen [Motrin] 600 mg PO Q6H PRN #60 tab 06/23/20 Following Prescrptions Were Given to Patient: Ibuprofen [Motrin] 600 mg PO Q6H PRN #60 tab PRN Reason: Pain Transmission Status: Pending to [facility] Primary Care Physician: Care Physician,No Primary [Primary Care Provider] - Please Follow Up With: Pavithra Muñoz MD - Call to make an appointment for an incision check in 1-2 [phone] When: You will need a post check in 6 weeks. Medical Necessity - Tobacco Use Smoking Status: Former smoker Meaningful Use Info Meaningful Use Diagnoses (Choose all that apply): None applicable
[2020-06-23 08:05] VITALS: BP 117/66; PULSE 72; RESP 16; TEMP 36.4
[2020-06-23 13:30] VITALS: BP 122/62; PULSE 97; RESP 18; TEMP 36.2
[2020-06-23 15:21] LABS: Pathology Specimen OB SEE PATHOLOGY REPORT
== END 2020-06-23 13:30 | disposition home or self-care (01) | DRG 539 ==
PROVIDERS: Advanced Practice Midwife; Admitting Provider Obstetrics & Gynecology; Referring Provider Obstetrics & Gynecology; Visit Provider Obstetrics & Gynecology
PROC: 10D00Z1 Extraction of Products of Conception, Low, Open Approach (ICD-10-PCS; CPT 59514; principal; 2020-06-21 11:45)
DX: O34.211 Maternal care for low transverse scar from previous cesarean delivery (principal); N85.8 Other specified noninflammatory disorders of uterus; Z3A.39 39 weeks gestation of pregnancy; Z37.0 Single live birth; Z30.2 Encounter for sterilization; Z87.891 Personal history of nicotine dependence; E66.9 Obesity, unspecified; O99.214 Obesity complicating childbirth
CPT/HCPCS: 59025; 59050; 80053; 84112; 85025; 85027; 86850; 86900; 86901; 87635; 88302; 99218; G2023; J7120; G0378; J2405; U0003